=== PATIENT | female | born 1995 | race Caucasian/White ===

== ENCOUNTER 2025-05-13 08:55 | Outpatient (CLI) | payer OTHER, SELFPAY | END 2025-05-13 08:56 | disposition home or self-care (01) | PROVIDERS: PCP Family Medicine; Visit Provider Family Medicine | DX: M25.50 Pain in unspecified joint (principal) | CPT/HCPCS: 80048; 82784; 85025; 86038; 86039; 86141; 86231; 86258; 86364 ==

== ENCOUNTER 2025-08-02 13:24 | Outpatient (CLI) | payer OTHER, SELFPAY | END 2025-08-02 13:25 | disposition home or self-care (01) | LOC: NFLDREF 08-08 01:27 | PROVIDERS: PCP Family Medicine; Referring Provider Family Medicine; Visit Provider Family Medicine | DX: K90.0 Celiac disease (principal) | CPT/HCPCS: 86235 ==

== ENCOUNTER 2025-10-02 09:36 | Outpatient (CLI) | payer OTHER, SELFPAY | END 2025-10-02 09:37 | disposition home or self-care (01) | PROVIDERS: PCP Family Medicine; Visit Provider Family Medicine | DX: M25.50 Pain in unspecified joint (principal) | CPT/HCPCS: 86038; 86039; 86140; 86431; 86812 ==